=== PATIENT | female | born 1985 ===

== ENCOUNTER 2024-08-25 12:34 | Emergency (ER) | payer OTHER, SELFPAY ==
--- NOTE | ~2024-08-25 | CT_ITS ---
EXAMINATION: CT HEAD WITHOUT CONTRAST CLINICAL INFORMATION: rule out SAH COMPARISON: None available. TECHNIQUE: Contiguous axial imaging was performed from the skull base to vertex without intravenous administration of contrast. This CT examination was performed using dose optimization techniques as appropriate, variously including the following: *Automated exposure control *Adjustment of mA and/or kV according to patient size (this includes techniques or standardized protocols for targeted exams where dose is matched to indication/reason for exam; i.e. extremities or head) *Use of iterative reconstruction technique DLP: 620 mGy-cm FINDINGS: Beam hardening artifact affecting the middle cranial fossa and petrous bone. No acute intracranial hemorrhage, mass effect, midline shift, hydrocephalus or herniation. Joseph-white matter differentiation is normal. Sellar/suprasellar region demonstrated no gross masses or hemorrhage. Craniocervical junction is intact and normal. No air-fluid levels in the paranasal sinuses. For pneumatization frontal sinuses. Tympanic cavities and mastoid air cells are aerated. CT/CT head/brain wo IV con IMPRESSION: No acute intracranial hemorrhage. No acute brain abnormality by CT. Electronically signed by: Yves Dumont MD 08/25/2024 02:56 PM EDT
--- NOTE | 2024-08-25 12:36 | ED_ITS ---
HPI - General Adult General Chief complaint: Recheck/Abnormal Lab/Rx Stated complaint: High Blood Pressure Fingertips are Tingly Time Seen by Provider: 08/25/24 13:31 Source: patient and RN notes reviewed Mode of arrival: ambulatory Limitations: no limitations History of Present Illness ED Provider: Sravani Burgess PA-C HPI narrative: Patient seeks medical attention in emergency department today for evaluation of elevated blood pressure that was associated with what she describes as a headache earlier. When questioning her more detail she points to her bilateral sides of her paraspinous cervical and SCM/upper trap region for where the pain was. It lasted for about an hour now associated with some paresthesias of her left hand. Isn't not travel to her head or down words or into her chest. It is not associated with any palpitations shortness of breath or angina. She did not try to treat it anyway. When this 1st happened it was shortly after taking her lisinopril pill for the 1st time. She was given a prescription for 10 mg for new onset of hypertension diagnosed by her primary care provider during a routine physical yesterday. She has 1 of her coworkers to take her blood pressure with a cuff nearby reporting that it is 180/120 she is not sure what size cuff it was used but while at her primary care office yesterday it was 150/100. Patient does not have her own meds of checking her blood pressure at home. Father has a history of stroke but no MIs no diabetes. Mom history unremarkable. Patient has no history otherwise of diabetes herself tobacco use or HLD. She is no longer endorsing any paresthesias. She thinks her neck pain earlier could have been just due to her posture as she has felt it before in the past. Onset was approximately 4 hours ago. There is only a dull ache it is not the worst she has ever felt. Patient is denying any headache nausea vomiting visual changes dizziness headaches light or sound sensitivity and has no change in his urinary output. Related Data Allergies Allergy/AdvReac Type Severity Reaction Status Date / Time No Known Allergies Allergy Unknown Verified 08/25/24 12:38 Review of Systems 2 Review of Systems: Yes all other systems are reviewed and are negative PMFSH Past Medical History Attestation statement: The following information was validated with the patient. Source: nursing notes reviewed Physical Exam ED Vital Signs: Vital Signs - 24 hr 08/25/24 12:37 Temperature 97.6 F Pulse Rate 108 H Respiratory Rate 18 Blood Pressure 183/125 H Pulse Oximetry 100 Oxygen Delivery Method Room Air BMI result Body Mass Index 31.9 Const Other: 1 neck was palpated when I push along side the SCM/upper trapezius region she states that is where she felt the pain earlier bilaterally there is no midline tenderness step-offs or deformities and no pain with full range of motion no nuchal rigidity General: cooperative, healthy appearing, comfortable, no acute distress, well developed, alert, awake and Physically active Nutritional Appearance: obese Orientation/consciousness: patient oriented x3 Limitations: no limitations HENMA Head: Yes normal to inspection Ears: hearing grossly normal bilaterally General nose exam: Normal external nose present Face and sinus: Yes normal facial exam Mouth: Normal oral and palatal mucosa present, lip normal, tongue normal and oropharynx normal Teeth and gingiva: dentition normal Throat: Yes posterior oropharynx normal Eyes General: appearance normal, both eyes and all related structures Periorbital: periorbital findings normal Eyelids: Yes eyelids normal Conjunctivae: conjunctivae normal Sclerae: sclerae normal Corneas: corneas normal Pupils: Equal, round and reactive pupils present EOM: EOMs intact bilaterally Neck Neck: Yes normal visual inspection, Yes full ROM, Yes no lymphadenopathy, Yes no meningeal signs, Yes trachea midline and Yes supple Chest Chest palpation & inspection: normal inspection of the chest Resp Effort & Inspection: normal respiratory effort and able to speak in complete sentences Auscultation: clear to auscultation bilaterally Cardio Jugular venous distension: no JVD Palpation: normal PMI Rate: regular rate Rhythm: regular rhythm GI Inspection: Yes normal to inspection Skin General skin exam: no rashes or lesions noted Lesions: no lesions Neuro General: patient oriented x3 and no meningeal signs Cranial nerves: Yes CN's II-XII intact bilaterally, Yes Facial sensation intact/muscles of mastication intact, Yes Equal, round and reactive pupils present, Yes Normal accommodation reflex present, Yes Bilaterally intact EOM present, Yes Nystagmus not present, Yes Normal facial strength present, Yes Midline tongue present, Yes Ability to bilaterally rotate head present and Yes Ability to bilaterally elevate shoulders present Cognition (Neuro): normal cognition Motor exam (neuro): 5/5 motor strength present throughout Coordination: [id number] test normal Romberg Test: Negative Extrem General: Yes normal to inspection, Yes full ROM and Yes no pedal edema Course Course Course Narrative: This is a Rapid Medical Exam performed in triage by Danika Vazquez PA-C. Full HPI, ROS and PE to be performed by primary ED provider. 39 y F w/PMHx HTN presenting to the ED c/o REIS, tingling, feeling weird x this morning with elevated BP at home (160s/130). Was seen at PCP yesterday & Dx with HTN started on Lisinopril 10mg, took 1st dose this AM. PE: HTNsive 183/125 in triage, no focal deficits Plan: EKG, labs, Head CT Medical Decision Making Medical Decision Making MDM Narrative: Well-appearing 39-year-old female with an obese body habitus presenting to the emergency department today for evaluation of what she described as a headache earlier but when fact was neck pain accompanied by an elevation of blood pressure but what is presumed to be the wrong size cuff as I asked her to point it out. Patient has a new onset of hypertension diagnosed formally by her primary care office yesterday. She was started on 10 mg of lisinopril but only took her 1st pill this morning. Her blood pressure was rechecked with the appropriate size cuff and was noted to be 150/100. She is not tachycardic or hypoxic no evidence of any acute respiratory distress. Given her complaint in the triage process we obtained an EKG which shows no acute ischemic findings. High sensitivity troponin negative- no cp. She is completely asymptomatic at this time. Basic labs drawn showing no evidence of leukocytosis anemia electrolyte imbalance or kidney/liver dysfunction. At the very least as her onset for her ?headache ?was less than 6 hours ago we will obtain a non-con head CT to rule out the very unlikelihood of SAH. Otherwise no other evidence of end-organ damage. Given she is asymptomatic this is not appear to be a hypertensive urgency or emergency that were required urgent or emergent reducing of her blood pressure therefore will defer IV medication for this. As she has only taken 1 dose of her home blood pressure medicine no adjustments will be made today. As long as her head CT is normal patient will be discharged to home with strict return precautions. Differential Diagnosis Differential Diagnoses: The differential diagnosis associated with the presentation includes See MDM Admission/Observation Consideration of admission/observation: Escalation of care including admission/observation considered Patient would have been admitted to the hospital had her work up had any findings where hospital admission was appropriate and had her clinical presentation warranted hospital admission. Lab Data MDM Lab Attestation statement: I reviewed the patient's lab results. 08/25/24 12:53 08/25/24 12:53 Labs: Lab Results 08/25/24 Range/Units 12:53 WBC 9.5 (4.8-10.8) X10*3/uL RBC 4.69 (4.20-5.50) X10*6/uL Hgb 14.4 (12.0-16.0) g/dl Hct 41.3 (37.0-47.0) % MCV 88.1 (80.0-98.0) fL MCH 30.7 (27.0-33.0) pg MCHC 34.9 (31.0-35.0) g/dl RDW 13.9 (11.0-16.0) % Plt Count 284 (160-400) X10*3/uL MPV 8.5 L (9.4-12.3) fL Immature Gran % (Auto) 0.3 (0.0-0.4) % Neut % (Auto) 62.3 (45-73) % Lymph % (Auto) 29.9 (20-40) % [place] % (Auto) 6.1 (2-11) % Eos % (Auto) 0.9 (0-4) % Baso % (Auto) 0.5 (0-2) % Lymph # (Auto) 2.9 (1.2-4.9) X10*3/uL [place] # (Auto) 0.6 (0.1-1.2) X10*3/uL Eos # (Auto) 0.1 (0.0-0.4) X10*3/uL Baso # (Auto) 0.1 (0.0-0.2) X10*3/uL Abs Immat Gran (auto) 0.03 (0.00-0.03) X10*3/uL Absolute Neuts (auto) 5.9 (2.0-8.3) x10*3/uL Absolute Nucleated RBC 0.000 (0.0-0.012) X10*3/uL Nucleated RBC % (auto) 0.0 (0.0-0.2) /100WBC Sodium 140 (135-145) mmol/L Potassium 3.8 (3.3-5.1) mmol/L Chloride 105 (96-108) mmol/L Carbon Dioxide 26 (22-29) mmol/L Anion Gap 13 (12-20) BUN 10 (9-16) mg/dL Creatinine 0.79 (0.5-1.4) mg/dL Estim Creat Clear Calc 91.3 Estimated GFR > 60 Random Glucose 107 (60-115) mg/dL Calcium 9.0 (8.4-10.2) mg/dL Magnesium 2.0 (1.6-2.6) mg/dL Total Bilirubin 0.6 (0.0-1.0) mg/dL Direct Bilirubin 0.2 (0.0-0.5) mg/dL AST 24 (5-31) U/L ALT 14 (0-31) U/L Alkaline Phosphatase 85 (39-117) U/L Troponin I High Sens < 2.7 (<3.5-17.0) ng/L Total Protein 7.4 (6.5-8.0) g/dL Albumin 4.4 (3.5-5.0) g/dL Beta HCG, Quant < 2 mIU/mL Independent Interpretation I performed an independent interpretation of an: EKG and CT Scan Interpretation: No evidence of malignant arrhythmia or acute ischemia today. CT Head without evidence of ICH, mass, or SAH. Radiology Impression Discussion of test interpretation with radiology: I have reviewed the radiologist's reading. External Record Review External record reviewed: Office record Tests considered The following testing was considered but not selected: Had she been symptomatic, would have ordered additional cardiac workup. There is no evidence of neurovascular compromise either to warrant CT imaging of the neck negative by nexus criteria Prescription Management I considered prescription management with: Other Would have adjusted blood pressure medicine if need be Chronic Conditions Patient?s care impacted by: Hypertension Discharge Plan Discharge Clinical Impression: Hypertension, Paresthesias, Myalgia Patient Disposition: Home, Self-Care Instructions: Heart Healthy Diet (DC), How to Take a Blood Pressure (ED), Hypertension (ED) Additional Instructions: You were seen in the emergency department today over concerns of elevated blood pressure that was associated with neck pain and paresthesias earlier today. Get a workup today that shows no evidence of end-organ damage and her blood pressure is certainly elevated but is not meeting criteria for hypertensive urgency or emergency to warrant emergent lowering. As he only just started her blood pressure medication today no adjustments will be made continue to take this and keep your follow-up appointment with your primary care provider. She handout for additional details about education and proper ways to take blood pressure measurements. As a gentle reminder try to make sure the blood pressure cuff the width of it is at least 40% of the circumference of your arm at the thickest portion of your upper arm. Too small of a cough will cause a falsely elevated blood pressure reading and to big of a cough will cause a falsely low blood pressure. Her asymptomatic at this time. Please return for any chest pain shortness of breath or other new onset of paresthesias or concerning symptoms. Blood work reassuring head CT normal. Referrals: [facility] [Physician] - 3 days Stand Alone Forms: Work/School Release Interventions: ED Discharge Assessment Last Done: 08/25/24 15:24 Discharge Date/Time: 08/25/24 15:29 Print Language: Azeri
[2024-08-25 12:37] VITALS: BP 183/125; PULSE 108; RESP 18; TEMP 36.4; O2SAT 100; BMI 31.9
--- NOTE | 2024-08-25 12:38 | ECG_ITS ---
Test Reason : htn Blood Pressure : */* mmHG Vent. Rate : 113 BPM Atrial Rate : 113 BPM P-R Int : 124 ms QRS Dur : 84 ms QT Int : 340 ms P-R-T Axes : 49 53 43 degrees QTcB Int : 466 ms Sinus tachycardia Cannot rule out Anterior infarct , age undetermined Abnormal ECG No previous ECGs available Referred By: Danika Vazquez Electronically Signed By: Wilbert Rojas
[2024-08-25 12:57] LABS: MANUAL DIFF FLAG NO
[2024-08-25 13:01] LABS: Basophils Absolute Auto 0.1 X10*3/uL (0.0-0.2); Basophils Percent Auto 0.5 % (0-2); Eosinophils Absolute Auto 0.1 X10*3/uL (0.0-0.4); Eosinophils Percent Auto 0.9 % (0-4); Hematocrit 41.3 % (37.0-47.0); Hemoglobin 14.4 g/dl (12.0-16.0); Imm Gran Abs Auto 0.03 X10*3/uL (0.00-0.03); Imm Gran Pct Auto 0.3 % (0.0-0.4); Lymphocytes Absolute Auto 2.9 X10*3/uL (1.2-4.9); Lymphocytes Percent Auto 29.9 % (20-40); Mean Corpuscular HGB Conc 34.9 g/dl (31.0-35.0); Mean Corpuscular Hemoglobin 30.7 pg (27.0-33.0); Mean Corpuscular Volume 88.1 fL (80.0-98.0); Mean Platelet Volume 8.5 fL (9.4-12.3); Monocytes Absolute Auto 0.6 X10*3/uL (0.1-1.2); Monocytes Percent Auto 6.1 % (2-11); Neutrophils Absolute Auto 5.9 x10*3/uL (2.0-8.3); Neutrophils Percent Auto 62.3 % (45-73); Platelet Count 284 X10*3/uL (160-400); Red Blood Count 4.69 X10*6/uL (4.20-5.50); Red Cell Distribution Width 13.9 % (11.0-16.0); White Blood Count 9.5 X10*3/uL (4.8-10.8)
[2024-08-25 13:19] LABS: Alanine Aminotransferase 14 U/L (0-31); Albumin Level 4.4 g/dL (3.5-5.0); Alkaline Phosphatase 85 U/L (39-117); Anion Gap 13 (12-20); Aspartate Amino Transferase 24 U/L (5-31); Bilirubin Direct 0.2 mg/dL (0.0-0.5); Bilirubin Total 0.6 mg/dL (0.0-1.0); Blood Urea Nitrogen 10 mg/dL (9-16); Carbon Dioxide 26 mmol/L (22-29); Chloride 105 mmol/L (96-108); Creatinine Clr Calc Pharmacy 91.3; Estimated Glomerular Filt Rate > 60; Glucose Random 107 mg/dL (60-115); HCG Quantitative < 2 mIU/mL; Potassium 3.8 mmol/L (3.3-5.1); Sodium 140 mmol/L (135-145); Total Protein 7.4 g/dL (6.5-8.0); Troponin-I High Sensitivity < 2.7 ng/L (<3.5-17.0)
[2024-08-25 14:08] VITALS: BP 152/102; PULSE 98; RESP 18; O2SAT 99
[2024-08-25 15:24] VITALS: BP 158/108; PULSE 96; RESP 16; TEMP 36.8; O2SAT 98
--- OUTSIDE RECORDS SUMMARY | 2024-08-25 15:54 | XMS_ITS | Clinical Summary ---
Author Organization [facility] Address [address] [place] [phone] Phone Care Team Providers Care Licensed Architect Name Role Phone Unavailable Primary Care Provider Unavailabl e Immunizations Immunization Administration Dates Next Due DT 01/15/1999,06/17/1991 DTP 11/14/1997,07/15/1997,04/16/1997 Hep B, ped/adol 01/04/1999,07/17/1998,06/15/1998 Hib (HbOC) 06/17/1990 IPV 01/15/1999, 8,04/16/1997,1991 MMR 08/15/1998,06/15/1998 Td (adult) (MBL), 2 Lf tetan us toxoid, PF, adsorbed 04/01/2006 Td (adult) (Tenivac), 5 Lf t etanus toxoid, PF, adsorbed 01/04/1999 Social History Tobacco Use Types Packs/Day Years Used Date Smoking Tobacco: Never Assessed Comments Unknown Sex and Gender Information Value Date Recorded Sex Assigned at Not on file Legal Sex Female 4:25 PM EDT Gender Identity Not on file Sexual Orientation Not on file Plan of Treatment Health Maintenance Due Date Last Done Comments Varicella Vaccines (1 of 2 - 13+ 2-dose series) 02/14/2000 DTaP,Tdap,and Td Vaccines (6 - Tdap) 04/01/2016 04/01/2006, 01/15/1999, 01/04/1999, Additional history exists Influenza Vaccines (#1) 2023 COVID-19 Vaccine ( season) 2024 HIB Vaccines Completed 06/17/1990 MMR Vaccines Completed 08/15/1998, 06/15/1998 Hepatitis B Vaccines Completed 01/04/1999, 07/17/1998, 06/15/1998 IPV Vaccines Completed 01/15/1999, 06/19, 04/16/1997, Additional history exists HPV Vaccines Aged Out No longer eligi ble based on patient's age to complete this topic Hepatitis A Vaccines Aged Out No long er eligible based on patient's age to complete this topic Men B Vaccine Aged Out No longer elig ible based on patient's age to complete this topic Meningococcal Vaccine Aged Out No nicolette odette eligible based on patient's age to complete this topic Pneumococcal Vaccine Aged Out No long er eligible based on patient's age to complete this topic
--- OUTSIDE RECORDS SUMMARY | 2024-08-25 15:54 | XMS_ITS | Encounter Summary ---
Author Organization [facility] Address [address] [place] [address] Phone Care Team Providers Care Labor Trainer Name Role Phone Ambreen Silver MD Primary Care Provider Encounter Details Date Type Department Care Team (Late st Contact Info) Description 01/01/2017 Conversion Encounter [facility] [address] [place] [address] Social History Tobacco Use Types Packs/Day Years Used Date Smoking Tobacco: Never Assessed Comments Unknown Sex and Gender Information Value Date Recorded Sex Assigned at Not on file Legal Sex Female 4:25 PM EDT Gender Identity Not on file Sexual Orientation Not on file documented as of this encounter Plan of Treatment Not on file documented as of this encounter Visit Diagnoses Not on filedocumented in this encounter Care Teams Labor Trainer Relationship Specialty Start Date End Date Ambreen Silver MD [address] [place] [address] PCP - General 12/26/16 10/22/22 documented as of this encounter
== END 2024-08-25 15:29 | disposition home or self-care (01) ==
PROVIDERS: Physician Assistant; Emergency Provider Emergency Medicine
DX: R79.89 Other specified abnormal findings of blood chemistry (principal); R51.9 Headache, unspecified; M79.10 Myalgia, unspecified site; R20.2 Paresthesia of skin; R00.0 Tachycardia, unspecified; R10.2 Pelvic and perineal pain; Z79.899 Other long term (current) drug therapy
CPT/HCPCS: 36415; 70450; 80048; 80076; 83735; 84484; 84702; 85025; 93005; 99284

== ENCOUNTER → 2024-08-25 12:38 | Outpatient (BNV) | payer OTHER, SELFPAY | PROVIDERS: Emergency Provider Emergency Medicine; Visit Provider Internal Medicine Cardiovascular Disease | DX: R00.0 Tachycardia, unspecified (principal) | CPT/HCPCS: 93010 ==

== ENCOUNTER → 2024-08-25 13:40 | Outpatient (BNV) | payer OTHER, SELFPAY | PROVIDERS: Visit Provider Radiology Diagnostic Radiology | DX: I10 Essential (primary) hypertension (principal); M79.10 Myalgia, unspecified site; R20.2 Paresthesia of skin | CPT/HCPCS: 70450 ==